=== PATIENT | female | born 1960 | race Caucasian/White ===

== ENCOUNTER 2021-01-03 10:49 | Outpatient (CLI) | payer MEDICARE, MEDICAID ==
[~2021-01-03] VITALS: Ht 160 cm; Wt 67.0 kg
[2021-01-03 11:49] VITALS: BP 156/96; PULSE 71; TEMP 98.6
[2021-01-03 13:10] VITALS: BP 153/100; PULSE 72
[2021-01-03 13:58] LABS: CSF MONONUCLEAR 59 % (70-100); CSF POLYMORPHONUCLEAR 41 % (0-6); CSF RBC 253000 /mm3 (0-0)
[2021-01-03 14:00] VITALS: BP 137/88; PULSE 68
[2021-01-03 14:19] LABS: GLUCOSE,CSF 68 mg/dL (40-70)
--- NOTE | 2021-01-03 14:20 | NUR ---
pt sits on side of bed, transfers self over to w/c, lab in earlier to draw blood, pt was discharged via w/c to transportation van with no questions or concerns
[2021-01-03 14:30] VITALS: BP 137/91; PULSE 67
[2021-01-06 14:16] LABS: CSF IGG/ALBUMIN 0.21 (<=0.21)
[2021-01-07 08:12] LABS: ALBUMUN SERUM 4500 mg/dL (()); CSF SYNTHESIS RATE 297.37 mg/24 h (<=12); CSF-IGG INDEX 0.88 (<=0.85); IGG,SERUM 1060 mg/dL (()); IGG/ALBUMIN SERUM 0.24 (<=0.40)
[2021-01-13 15:00] LABS: CSF OLIG BD INTERPRETATION 0 bands (<2); SE OLIGOCLONAL BANDING 4 bands (())
== END 2021-01-03 14:25 | disposition home or self-care (01) ==
LOC: COL.RAD 10:49
PROVIDERS: Psychiatry & Neurology Neurology
DX: R27.0 Ataxia, unspecified (principal)